=== PATIENT | male | born 1985 | race Hispanic/Latino ===

== ENCOUNTER 2024-05-27 02:59 | Emergency (ER) | payer OTHER ==
[~2024-05-27] VITALS: Ht 154.9 cm; Wt 81.6 kg
[~2024-05-27 02:59] MED LIST: AMOXICILLIN500 MG PO; NAPROSYN375 MG PO; NO HOME MEDS; PROAIR HFA IN; TRIAMCINOLON0.51 EX
[2024-05-27 04:35] VITALS: BP 137/90
== END 2024-05-27 04:38 | DRG 156 ==
LOC: ED 02:59
DX: S02.2XXA Fracture of nasal bones, initial encounter for closed fracture (principal); S00.83XA Contusion of other part of head, initial encounter; Y04.0XXA Assault by unarmed brawl or fight, initial encounter; Y92.009 Unspecified place in unspecified non-institutional (private) residence as the place of occurrence of the external cause